=== PATIENT | female | born 2000 | race Caucasian/White ===

== ENCOUNTER 2023-10-30 20:17 | Emergency (ER) | payer SELFPAY ==
--- NOTE | 2023-10-30 20:49 | XR_ITS ---
The [address] [address] Patient Name: VENKAT AYON MRN: [id number] date: 2000 Sex: F Assigned Patient Location: ED.MAIN Current Patient Location: ER Accession/Order Number: [id number] Exam Date: 10/30/2023 21:10 Report Date: 10/30/2023 21:29 At the request of: ELISEO PHILIP Procedure: XR chest 2V EXAM: XR chest 2V HISTORY: cough COMPARISON: None. TECHNIQUE: 2 views of the chest FINDINGS: Heart size normal. No focal consolidation, pleural effusion, pulmonary congestion or pneumothorax. Peribronchial thickening. XR/XR chest 2V IMPRESSION: Peribronchial thickening. No other acute findings. Electronically authenticated by: LEIGH ANN ALMARAZ Date: 10/30/2023 21:29
[2023-10-30 21:05] VITALS: BP 133/100; PULSE 111; TEMP 36.9; O2SAT 96; BMI 101.5
--- NOTE | 2023-10-30 22:13 | ECG_ITS ---
[facility] Test Date: 2023-10-30 Pat Name: VENKAT AYON Department: Room: - Gender: Female Health Services Director: : 2000 Requested By: [id number] Order Number: [id number] Reading MD: MEI EDWARDS Measurements Intervals [place] Rate: 100 P: 32 [place]: 176 QRS: 38 QRSD: 92 T: 27 QT: 326 QTc: 383 Interpretive Statements 1120 Sinus tachycardia 4068 Nonspecific Tw[place] abnormality 9140 abnormal rhythm ECG No previous ECG available for comparison Electronically Signed On 11-01-2023 10:49:28 EDT by MEI EDWARDS
--- NOTE | 2023-10-30 22:29 | ED_ITS ---
Documented by User: Mckenna Thao 10/30/23 22:38 HPI HPI - General Adult General Chief complaint: Dizziness Stated complaint: sob Time Seen by Provider: 10/30/23 20:49 Source: patient Mode of arrival: walk-in Limitations: no limitations History of Present Illness HPI narrative: Female presents here with chief complaint of anxiety and stress. She states she had shortness of breath earlier today and is concerned and overwhelmed by the thought she may have cancer. She is tearful. Patient states she took her blood pressure medication earlier today and still has elevated blood pressure. Upon arrival she is tearful. She does not appear toxic. Related Data Home Medications ?Medication ?Instructions ?Recorded ?Confirmed losartan 100 1 tab PO DAILY 10/30/23 10/30/23 mg-hydrochlorothiazide 12.5 mg tablet Allergies Allergy/AdvReac Type Severity Reaction Status Date / Time diphenhydramine Allergy Severe Verified 10/30/23 21:04 [From Benadryl] sertraline [From Zoloft] AdvReac Verified 10/30/23 21:04 Opioid HPI Opioid Management Most Recent Opioid Data: Last Pain Scale 1 10/30/23 22:58 Last ED Pain Assessment 10/30/23 22:58 Review of Systems ROS Narrative All Systems are negative except as noted/marked.All systems reviewed and otherwise negative Exam Narrative Exam Narrative: Nurses note and vital signs reviewed and patient is not hypoxic. General: The patient appears anxious, Tearful, Skin: Warm, dry, no pallor noted. There is no rash noted. Head: Normocephalic, atraumatic Eye: Normal conjunctiva, no drainage, EOMI. PERRL Ears, Nose, Mouth, and Throat: oral mucosa is moist. Nares patent. Mouth without vesicles. Ear canals patent. Tm's without Erythema Cardiovascular: Regular Rate and Rhythm Respiratory: Patient is in no distress, no accessory muscle use, lungs are clear to auscultation, no wheezing, rales or rhonchi Back: non-tender, no CVA tenderness bilaterally to percussion. GI: Normal bowel sounds, no tenderness to palpation, no masses appreciated. No rebound, guarding, or rigidity noted. Musculoskeletal: The patient has no evidence of calf tenderness, no pitting edema, symmetrical pulses noted bilaterally Neurological: A&O x4, normal speech Psychiatric:anxious Cooperative Constitutional Vital Signs, click to edit/add: Last Vital Signs Temp 98.5 F 10/30/23 21:05 Pulse 111 H 10/30/23 21:05 Resp 20 10/30/23 21:05 BP 133/100 H 10/30/23 21:05 Pulse Ox 94 L 10/30/23 22:58 O2 Del Method Room Air 10/30/23 22:58 Course Vital Signs Vital signs: Vital Signs Temperature 98.5 F 10/30/23 21:05 Pulse Rate 111 H 10/30/23 21:05 Respiratory Rate 20 10/30/23 21:05 Blood Pressure 133/100 H 10/30/23 21:05 Pulse Oximetry 96 10/30/23 21:05 Oxygen Delivery Method Room Air 10/30/23 21:05 Temperature 98.5 F 10/30/23 21:05 Pulse Rate 111 H 10/30/23 21:05 Respiratory Rate 20 10/30/23 21:05 Blood Pressure 133/100 H 10/30/23 21:05 Pulse Oximetry 94 L 10/30/23 22:58 Oxygen Delivery Method Room Air 10/30/23 22:58 Medical Decision Making Differential Diagnosis Differential Diagnosis: anxiety, stress reaction Medical Records Medical records reviewed: Yes I reviewed the patient's medical records Imaging Data Chest x-ray: Radiologist's impression: ITS Impressions Chest X-Ray 10/30/23 20:49 IMPRESSION: Peribronchial thickening. No other acute findings. Electronically authenticated by: LEIGH ANN ALMARAZ Date: 10/30/2023 21:29 ECG Data Attestation: ?I have reviewed the pertinent ECG results. Interpretation: 2233EKG sinus tachycardia rate of 100 bpm, QRS duration 92 ms LA interval 176 Ms, no STEMI Discharge Plan Discharge Stand Alone Forms: Portal Instructions Chief Complaint: Dizziness Clinical Impression: Anxiety Patient Disposition: Home, Self-Care Time of Disposition Decision: 23:00 Condition: Good Prescriptions / Home Meds: No Action losartan-hydrochlorothiazide 100-12.5 mg tablet 1 tab PO DAILY Print Language: Mexican Instructions: Anxiety (ED) Referrals: [facility] [Primary Care Provider] - 1 week Documented by User: Ernesto Briceno MD 10/30/23 23:05 HPI HPI - General Adult General Chief complaint: Dizziness Stated complaint: sob Time Seen by Provider: 10/30/23 20:49 Related Data Home Medications ?Medication ?Instructions ?Recorded ?Confirmed losartan 100 1 tab PO DAILY 10/30/23 10/30/23 mg-hydrochlorothiazide 12.5 mg tablet Allergies Allergy/AdvReac Type Severity Reaction Status Date / Time diphenhydramine Allergy Severe Verified 10/30/23 21:04 [From Benadryl] sertraline [From Zoloft] AdvReac Verified 10/30/23 21:04 Opioid HPI Opioid Management Most Recent Opioid Data: Last Pain Scale 1 10/30/23 22:58 Last ED Pain Assessment 10/30/23 22:58 Exam Constitutional Vital Signs, click to edit/add: Last Vital Signs Temp 98.5 F 10/30/23 21:05 Pulse 111 H 10/30/23 21:05 Resp 20 10/30/23 21:05 BP 133/100 H 10/30/23 21:05 Pulse Ox 94 L 10/30/23 22:58 O2 Del Method Room Air 10/30/23 22:58 Course Vital Signs Vital signs: Vital Signs Temperature 98.5 F 10/30/23 21:05 Pulse Rate 111 H 10/30/23 21:05 Respiratory Rate 20 10/30/23 21:05 Blood Pressure 133/100 H 10/30/23 21:05 Pulse Oximetry 96 10/30/23 21:05 Oxygen Delivery Method Room Air 10/30/23 21:05 Temperature 98.5 F 10/30/23 21:05 Pulse Rate 111 H 10/30/23 21:05 Respiratory Rate 20 10/30/23 21:05 Blood Pressure 133/100 H 10/30/23 21:05 Pulse Oximetry 94 L 10/30/23 22:58 Oxygen Delivery Method Room Air 10/30/23 22:58 Medical Decision Making MDM Narrative Medical decision making narrative: The patient was given Ativan here and feels improved and she is able to be discharged home. She has a plan on getting back on her medications. Findings were discussed with the patient. Imaging Data Chest x-ray: Radiologist's impression: ITS Impressions Chest X-Ray 10/30/23 20:49 IMPRESSION: Peribronchial thickening. No other acute findings. Electronically authenticated by: LEIGH ANN ALMARAZ Date: 10/30/2023 21:29 Discharge Plan Discharge Stand Alone Forms: Portal Instructions Chief Complaint: Dizziness Clinical Impression: Anxiety Patient Disposition: Home, Self-Care Time of Disposition Decision: 23:00 Condition: Good Prescriptions / Home Meds: No Action losartan-hydrochlorothiazide 100-12.5 mg tablet 1 tab PO DAILY Print Language: Mexican Instructions: Anxiety (ED) Referrals: [facility] [Primary Care Provider] - 1 week
[2023-10-30] MEDS: LORAZEPAM 1 MG TABLET PO (22:50)
[2023-10-30 22:58] VITALS: O2SAT 94
--- NOTE | 2023-10-30 23:01 | PC.NURSE ---
Some nasal congestion noted. States blowing out clear.
== END 2023-10-30 23:12 | disposition home or self-care (01) ==
PROVIDERS: Emergency Provider Emergency Medicine
DX: F41.9 Anxiety disorder, unspecified (principal); Z79.899 Other long term (current) drug therapy; I10 Essential (primary) hypertension
CPT/HCPCS: 71046; 93005; 99284